=== PATIENT | male | born 1975 ===

== ENCOUNTER 2020-01-07 20:11 | Inpatient (IN) | payer SELFPAY ==
[2020-01-07 20:12] VITALS: BP 153/76; PULSE 96; RESP 16; TEMP 37.5; O2SAT 98; BMI 26.3
--- NOTE | 2020-01-07 20:29 | ED_ITS ---
HPI - Wound/Laceration General: Chief Complaint: Wound/Laceration Stated Complaint: WOUND Time Seen by Provider: 01/07/20 20:17 Source: patient and EMS Mode of arrival: EMS Limitations: no limitations History of Present Illness: HPI narrative: 44-year-old male states he has had redness and warmth to his arm for couple days. Patient was seen at [facility] and transferred here for direct admission. Patient has been febrile. He does have pain he rates a 6 out of 10. Patient given IV vancomycin at other facility. He has no cough. Associated symptoms: Reports fever(s); Denies chills, nausea or vomiting Review of Systems Const: Reports: fever(s); Denies: chills, body aches or change in appetite Eyes: Denies: blurry vision or eye discomfort ENMT: Denies: throat pain or dental pain Card: Denies: chest pain Resp: Denies: dyspnea GI: Denies: abdominal pain, nausea, vomiting or diarrhea : Denies: dysuria Musc: Denies: neck pain or back pain Skin/Breast: Reports: erythema and skin swelling Neuro: Denies: headache(s) Psych: Denies: depression Jose/Lymph: Denies: easy bruising All/Imm: Denies: urticaria Physical Exam Const: COMMON NORMALS: no acute distress, patient oriented x3 and healthy a ppearing HENMT: COMMON NORMALS: normocephalic and atraumatic HEAD & SCALP: normocephalic and atraumatic Eye: COMMON NORMALS: Equal, round and reactive pupils present and EOMs intact bilaterally PUPIL: Yes Equal, round and reactive pupils present Neck/C-Spine: COMMON NORMALS: full ROM and supple Chest: COMMONS NORMALS: normal inspection of the chest and normal palpation of entire chest wall Resp: COMMON NORMALS: normal respiratory effort, No retractions, No use of accessory muscles and clear to auscultation bilaterally AUSCULTATION: clear to auscultation bilaterally Cardio: COMMON NORMALS: regular rate, regular rhythm and No murmurs present (Cardio) RATE: regular rate RHYTHM: regular rhythm GI: COMMON NORMALS: Normal to inspection, nondistended, normoactive bowel sounds present, Soft to palpation, non-tender and no masses PALPATION: Yes Soft to palpation Extremity: COMMON NORMALS: full ROM NARRATIVE EXTREMITY EXAM: Swelling and erythema to right arm with tenderness to touch Neuro: COMMON NORMALS: patient oriented x3, moves all extremities and no focal motor deficits Psych: COMMON NORMALS: mental status grossly normal, Normal thought process present and cooperative THOUGHT PROCESS: Normal thought process present Skin: COMMON NORMALS: no rashes or lesions noted and no wounds GENERAL SKIN EXAM: no rashes or lesions noted Course Vital Signs: Vital signs: Vital Signs Temperature 99.5 F 01/07/20 20:12 Pulse Rate 96 01/07/20 20:12 Respiratory Rate 16 01/07/20 20:12 Blood Pressure 153/76 01/07/20 20:12 Pulse Oximetry 98 01/07/20 20:12 MDM - Wound/Laceration MDM Narrative: Medical decision making narrative: Matt presents here with cellulitis to his right arm. Patient is a direct admit and has no COVID symptoms. Patient given vancomycin another facility and will admit. Hospitalist Dr. Galvan is down seen patient currently. 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
--- NOTE | 2020-01-07 20:50 | PM.HP ---
Providers/Chief Complaint Chief Complaint: WOUND History of Present Illness Zachariah Quiros is a 44 year old male transferred from [facility] for concerns of right elbow swelling. He reports the right elbow started giving him pain and swelling 1 week ago. He does not believe he had any specific injury. He reports he started noticing some bumps going up his arm and saw a healthcare provider 2 days ago. At that point 1 of them was lanced, and he was placed on Bactrim. He took his first dose yesterday. Today he had some vomiting, chills, and elevated temperature. He then went to the emergency department, and it was thought he would need transfer for IV antibiotics, and orthopedic evaluation. He denies any history of COVID, exposure to COVID. He denies any current active drug use. He received an injection of Rocephin, and vancomycin prior to his transfer. He also received some fentanyl for pain. Denies picking of any ticks on the right arm, cat scratch, pet rabbits or dressing out any rabbits. Review of Systems General: Reports: 10 or more systems reviewed and unremarkable except in HPI and below Const: Reports: fever(s), chills, body aches and malaise Eyes: Denies: change in vision ENMT: Denies: throat pain Card: Denies: chest pain Resp: Denies: dyspnea GI: Reports: heartburn; Denies: abdominal pain : Denies: flank pain Musc: Reports: extremity pain and extremity swelling; Denies: neck pain Skin/Breast: Denies: rash Neuro: Denies: headache(s) Psych: Denies: anxiety Jose/Lymph: Denies: easy bruising All/Imm: Denies: urticaria Medications/Allergies Home Medications Medication Instructions Recorded Confirmed Last Taken Type naproxen 375 mg PO BID PRN 01/07/20 01/07/20 01/07/20 History sulfamethoxazole-trimethoprim See Rx Instructions .ROUTE .COMPLEX 01/07/20 01/07/20 01/07/20 History Allergies Allergy/AdvReac Type Severity Reaction Status Date / Time No Known Allergies Allergy Verified 01/07/20 20:58 PFSH Acute PFSH: Medical History (Updated 01/07/20 @ 20:57 by Aditya Galvan MD) GERD (gastroesophageal reflux disease) Tobacco dependency Surgical History (Updated 01/07/20 @ 20:54 by Aditya Galvan MD) History of knee surgery Family History (Updated 01/07/20 @ 20:54 by Aditya Galvan MD) Other Diabetes Social History (Updated 01/07/20 @ 20:54 by Aditya Galvan MD) Smoking and tobacco status: current every day smoker cigarettes Alcohol intake: current Alcohol intake frequency: 0-2 Drinks per Day Substance/Drug Use: former Vitals/I&O/Wt Last Vital Signs Temp 99.5 F 01/07/20 20:12 Pulse 96 01/07/20 20:12 Resp 16 01/07/20 20:12 BP 153/76 01/07/20 20:12 Pulse Ox 98 01/07/20 20:12 Weight last 48 hrs Weight 92.986 kg Physical Exam Narrative: EXAM NARRATIVE: General exam is a sleepy, white male in no apparent distress HEENT: Pupils equally round. Oropharynx clear. Neck is supple no lymphadenopathy or thyromegaly Cardiovascular regular in rhythm without murmur, no S3 or S4 Lungs clear no wheezing or crackles Abdomen is soft nontender with positive bowel sounds. No obvious organomegaly was deferred Extremities no cyanosis or clubbing. Right upper extremity with significant swelling. Some fluctuance over the right olecranon bursa. Enlarged lymph nodes, with some drainage in her right arm as well as axilla. Fair range of motion of the right elbow and I doubt he has a septic joint. Erythema over the skin consistent with cellulitis as well. Skin findings see above Neuro no focal deficits Data Other data: Venous duplex at [facility] right upper extremity negative for DVT. White blood cell count 23, hemoglobin 14.1, platelets 261,000 Sodium 131, potassium 3.8, chloride 96, bicarb 24, BUN 6, creatinine 0.7, glucose 108. Liver function test not done. A&P Assessment and plan (1) Septic olecranon bursitis of right elbow: Initiate vancomycin and Zosyn Orthopedic consultation Hydration Note that venous duplex is negative Check x-ray right elbow as well as chest considering enlarged lymph nodes, to axilla Cultures to be obtained by orthopedics Repeat blood culture here. One was done at [facility] Check liver function tests Rapid COVID test. Surgery expected tomorrow. Status: Acute (2) Cellulitis: Antibiotics as noted above Status: Acute Qualifiers: Laterality: right Site of cellulitis: extremity Site of cellulitis of extremity: upper extremity Qualified Code(s): L03.113 - Cellulitis of right upper limb (3) Tobacco dependency: Encourage abstinence Status: Acute (4) Leukocytosis: Secondary to infection. 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
[2020-01-07 20:51] VITALS: BP 153/76; PULSE 94; RESP 16; O2SAT 98
--- NOTE | 2020-01-07 20:56 | XRR_ITS ---
PROCEDURE INFORMATION: Exam: XR Chest, 1 View Exam date and time: 01/07/2020 9:10 PM Age: 44 years old Clinical indication: Other: Boil RT armpit; Patient HX: C/O boil right armpit x 1 week; Additional info: Fever TECHNIQUE: Imaging protocol: XR of the chest Views: 1 view. COMPARISON: No relevant prior studies available. FINDINGS: Lungs: Interstitial prominence without acute airspace disease. Pleural space: No pleural effusion. Heart/Mediastinum: No cardiomegaly. Bones/joints: Mild degenerative change. XR/XR chest 1V portable [id number] IMPRESSION: Interstitial prominence without acute airspace disease.
[2020-01-07 21:04] VITALS: BP 141/77; PULSE 92; RESP 18; TEMP 36.7; O2SAT 96
--- NOTE | 2020-01-07 21:04 | XRR_ITS ---
PROCEDURE INFORMATION: Exam: XR Right Elbow Exam date and time: 01/07/2020 10:08 PM Age: 44 years old Clinical indication: Swelling; Right; Patient HX: C/O redness and warmth and pain to R elbow for couple of days. ; Additional info: Pain , swelling TECHNIQUE: Imaging protocol: XR Right elbow. Views: 1 or 2 views. COMPARISON: No relevant prior studies available. FINDINGS: Bones/joints: Calcification of the triceps tendon attachment site. No acute osseous pathology. Anatomic alignment. Soft tissues: Soft tissue swelling, which could represent cellulitis in the appropriate clinical setting. XR/XR elbow RT 2V [id number] IMPRESSION: Soft tissue swelling, which could represent cellulitis in the appropriate clinical setting.
[2020-01-07 21:59] LABS: SARS Covid-2 Antigen Negative (Negative)
[2020-01-07 22:02] LABS: Alanine Aminotransferase 13 U/L (0-41); Albumin Level 3.2 g/dL (3.5-5.2); Alkaline Phosphatase 106 IU/L (40-130); Aspartate Amino Transferase 11 U/L (0-40); Globulin 3.6 g/dL (1.3-4.6); Total Bilirubin 0.4 mg/dL (0.15-1.2); Total Protein 6.8 g/dL (6.6-8.7)
[2020-01-07 22:04] VITALS: BP 141/83; PULSE 99; RESP 16; O2SAT 95
[2020-01-07 22:31] VITALS: PULSE 95; O2SAT 96
[2020-01-07] MEDS: sodium chloride 0.9% 1,000 ML 100 ML IV (22:55)
[2020-01-07] MEDS: piperacillin-tazobactam 3.375 GM in sodium chloride 0.9% (plus) 50 ML IV (22:55)
[2020-01-08] VITALS (15 sets, daily range): BP systolic 126–188; BP diastolic 71–102; PULSE 67–101; RESP 14–20; TEMP 36.6–37.6; O2SAT 94–100
[2020-01-08 05:38] LABS: Basophils % 0.2 %; Eosinophils # 0.1 10^3/uL (0.0-0.8); Eosinophils % 0.4 %; Hematocrit 37.6 % (42.0-52.0); Hemoglobin 12.6 g/dL (11.7-16.6); Lymphocytes # 1.3 10^3/uL (0.8-4.8); Lymphocytes % 6.8 %; Mean Corpuscular HGB Conc 33.5 g/dL (30.0-36.0); Mean Corpuscular Volume 86.6 fL (80-94); Monocytes # 1.1 10^3/uL (0.2-0.9); Monocytes % 5.7 %; Neutrophils # 16.24 10^3/uL (1.8-7.7); Neutrophils % 86.5 %; Nucleated Red Blood Cells % 0 %; Platelet Count 303 10^3/cmm (130-400); Red Blood Count 4.34 10^6/uL (4.1-5.3); Red Cell Distribution Width 13.8 % (12.1-15.1); White Blood Count 18.8 10^3/uL (4.0-10.0)
[2020-01-08 06:10] LABS: Alanine Aminotransferase 13 U/L (0-41); Albumin Level 3.2 g/dL (3.5-5.2); Alkaline Phosphatase 98 IU/L (40-130); Anion Gap 17.8 (5-19); Aspartate Amino Transferase 11 U/L (0-40); Blood Urea Nitrogen 8 mg/dL (6-20); Calcium 7.9 mg/dL (8.5-10.5); Carbon Dioxide 22 mmol/L (22-29); Chloride 100 mmol/L (98-107); Globulin 3.5 g/dL (1.3-4.6); Glomerular Filtration Rate 104.5 mL/min (90-130); Glucose 107 mg/dL (65-115); Osmolality Calculated 278 mOsm/kg (285-295); Potassium 3.8 mmol/L (3.5-5.1); Sodium 136 mmol/L (136-145); Total Bilirubin 0.5 mg/dL (0.15-1.2); Total Protein 6.7 g/dL (6.6-8.7)
[2020-01-08] MEDS: piperacillin-tazobactam 3.375 GM in sodium chloride 0.9% (plus) 50 ML IV ×2 (07:01→16:14)
--- NOTE | 2020-01-08 08:01 | PM.CONSULT ---
Providers/Reason For Consult Consulting Physican/Specialty*: Diogenes Garcia MD; orthopedic surgery Reason for Consult*: Infection right arm Attending Physician: Surekha Mendoza MD History of Present Illness History of Present Illness Zachariah Quiros is a 44 year old male who described pain and swelling beginning over his right elbow Monday about 1 week ago. He stated that began slowly progressing as well he noted area of erythema swelling in his armpit. He was seen Monday, 3 days ago, and [facility]. He describes the abscess in his axilla being lanced and beginning antibiotics on Monday, 2 days ago. He was seen in the emergency room last night with apparent progression of the erythema and the swelling. He was treated with Rocephin and vancomycin and is been admitted here to medicine. He is not aware of any trauma to the elbow. He describes no insect bites or penetrating wounds. He has no previous history of staphylococcal or other infections. Review of Systems Const: Reports: fever(s), body aches and malaise Meds/Allergies Home Medications and Allergies Home Medications Medication Instructions Recorded Confirmed Last Taken Type naproxen 375 mg PO BID PRN 01/07/20 01/07/20 01/07/20 History sulfamethoxazole-trimethoprim See Rx Instructions .ROUTE .COMPLEX 01/07/20 01/07/20 01/07/20 History Allergies Allergy/AdvReac Type Severity Reaction Status Date / Time No Known Allergies Allergy Verified 01/07/20 20:58 Current Medications Current Medications Generic Name Dose Route Start Last Admin Trade Name Freq PRN Reason Stop Dose Admin Sodium Chloride 1,000 mls @ 100 mls/hr 01/07/20 21:04 01/07/20 22:55 Sodium Chloride 0.9% IV 100 mls/hr .Q10H RORO Administration Piperacillin Sod/Tazobactam 50 mls @ 12.5 mls/hr 01/07/20 22:30 01/08/20 07:01 Sod 3.375 gm/ Sodium Chloride IV 12.5 mls/hr Q8H RORO Administration Protocol As Directed PFSH Acute PFSH: Medical History (Updated 01/07/20 @ 20:57 by Aditya Galvan MD) GERD (gastroesophageal reflux disease) Tobacco dependency Surgical History (Updated 01/07/20 @ 20:54 by Aditya Galvan MD) History of knee surgery Family History (Updated 01/07/20 @ 20:54 by Aditya Galvan MD) Other Diabetes Social History (Updated 01/07/20 @ 20:54 by Aditya Galvan MD) Smoking and tobacco status: current every day smoker cigarettes Alcohol intake: current Alcohol intake frequency: 0-2 Drinks per Day Substance/Drug Use: former Vitals/I&O/Wt Last Vital Signs Temp 98.5 F 01/08/20 04:00 Pulse 101 H 01/08/20 04:00 Resp 18 01/08/20 04:00 BP 127/85 01/08/20 04:00 Pulse Ox 97 01/08/20 04:00 01/07/20 01/08/20 01/08/20 22:59 06:59 14:59 Intake Total 550 / 550 Output Total 400 / 400 Balance 150 / 150 Weight last 48 hrs Weight 205 lb Physical Exam Narrative: EXAM NARRATIVE: On examination the patient's right arm he has a clear area of a tight swollen fluctuant over his olecranon bursa with marked erythema. The erythema extends up to the proximal third of the arm posteriorly and distal third of the arm dorsally with induration, swelling, and tenderness in those areas. He lacks approximately 30 degrees of extension of the elbow and flex to 100 degrees before he is limited by pain. He flexes and extends his ulnar 4 digits and extends and opposes his thumb. His sensation is intact light touch. He has a strong pulse. Data Micro: Micro: Microbiology 01/07/20 21:15 Blood Culture - Pr eliminary Blood SPECIMEN [facility] 01/07/20 21:19 Blood Culture - Pr eliminary Blood SPECIMEN [facility] Imaging^: Xray Ortho: Radiologist's impression: I reviewed radiographs of the right elbow from [facility]'s dated 01/07/2020. I can see no destructive processes of bone or other abnormalities A&P Assessment and plan (1) Septic olecranon bursitis of right elbow: Patient certainly has septic olecranon bursitis. I have concerns about the satellite abscesses as far as his axilla and the induration extending into his posterior arm and a dorsal forearm. I certainly think he needs excision of the olecranon bursa. I told him there certainly could be distal extension of abscesses was might be best clarified with MRI imaging. We will attempt to get an MRI to define the extent of surgery. We will schedule him for irrigation debridement of the right elbow this evening. I made aware of the possible need for further debridements. I discussed risk of bleeding and unlikely neurovascular injury. He understands all these and agrees to proceed. 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
[2020-01-08] MEDS: sodium chloride 0.9% 1,000 ML 100 ML IV (09:19)
--- NOTE | 2020-01-08 10:42 | PM.PN ---
Subjective Subjective: Interval history: Chart reviewed, noted decreased leukocytosis, afebrile. Case discussed earlier this morning with Dr. Garcia. Plan for OR later this evening. Will order MRI for further evaluation due to concern for more extensive infection. On dual IV antibiotic coverage with vancomycin and Zosyn. NPO in anticipation of procedure. Screen for COVID-19, negative. Transferred from [facility] ER last night. Unable to tolerate MRI. Taken to the OR in the late afternoon. Seen upon return home procedure, groggy, right upper extremity in sling. Medications: Reviewed: Yes Medication Review Details: Active Medications Generic Name Dose Route Start Last Admin Trade Name Freq PRN Reason Stop Dose Admin Acetaminophen 650 mg 01/07/20 21:04 Tylenol PO Q6H PRN Mild/Mod Pain Or Temp >/= 101 Sodium Chloride 1,000 mls @ 100 m ls/hr 01/07/20 21:04 01/08/20 09:19 Sodium Chloride 0.9% IV 100 mls/hr .Q10H RORO Administration Vancomycin HCl 1,5 00 mg/ 250 mls @ 166.667 mls/hr 01/08/20 07:30 Sodium Chloride IV Q8H RORO Protocol Piperacillin Sod/T azobactam 50 mls @ 12.5 mls /hr 01/07/20 22:30 01/08/20 07:01 Sod 3.375 gm/ So dium Chloride IV 12.5 mls/hr Q8H RORO Administration Protocol As Directed Morphine Sulfate 2 mg 01/07/20 21:04 Morphine IVP Q4H PRN PAIN Ondansetron HCl 4 mg 01/07/20 21:04 Zofran IVP Q6H PRN vomiting, or N/V if npo No Known Allergies Allergy (Verified 01/07/20 20:58) Vitals/I&O/Wt Last Vital Signs Temp 99.5 F 01/08/20 08:00 Pulse 96 01/08/20 08:00 Resp 14 01/08/20 08:00 BP 150/84 01/08/20 08:00 Pulse Ox 96 01/08/20 08:00 01/07/20 01/08/20 01/08/20 22:59 06:59 14:59 Intake Total 550 / 550 1000 / 1000 Output Total 400 / 400 300 / 300 Balance 150 / 150 700 / 700 Weight last 48 hrs Weight 92.986 kg Physical Exam Const: COMMON NORMALS: no acute distress, patient oriented x3 and alert GENERAL APPEARANCE: cooperative and comfortable ORIENTATION/CONSCIOUSNESS: Yes awake OTHER: -somewhat groggy post-op HENMT: COMMON NORMALS: normocephalic, atraumatic, hearing grossly normal bilaterally and moist oral mucous membranes HEAD & SCALP: normocephalic and atraumatic Eye: COMMON NORMALS: Equal, round and reactive pupils present, EOMs intact bilaterally and conjunctivae normal CONJUNCTIVA: Yes conjunctivae normal PUPIL: Yes Equal, round and reactive pupils present Neck/C-Spine: COMMON NORMALS: full ROM GENERAL: Yes normal visual inspection and Yes trachea midline Resp: COMMON NORMALS: normal respiratory effort, No retractions, No use of accessory muscles and clear to auscultation bilaterally EFFORT & INSPECTION: Yes able to speak in complete sentences, Yes symmetric chest movement and No tachypneic AUSCULTATION: clear to auscultation bilaterally Cardio: COMMON NORMALS: regular rate, regular rhythm, S1 normal heart sound present, S2 normal heart sound present and No murmurs present (Cardio) RATE: regular rate RHYTHM: regular rhythm HEART SOUNDS: S1 normal heart sound present and S2 normal heart sound present GI: COMMON NORMALS: Normal to inspection, nondistended, normoactive bowel sounds present, Soft to palpation and non-tender PALPATION: Yes Soft to palpation Extremity: COMMON NORMALS: normal to inspection, no clubbing, cyanosis or edema and no pedal edema NARRATIVE EXTREMITY EXAM: -RUE in sling, bulky dressing. Gross sensation intact, edema of fingers and hand Neuro: COMMON NORMALS: patient oriented x3, moves all extremities, no focal motor deficits, no sensory deficits noted and gait normal SENSORIUM/ORIENTATION: Yes alert Psych: COMMON NORMALS: mental status grossly normal, Normal thought process present, cooperative, normal affect and speech normal SPEECH: Yes normal speech THOUGHT PROCESS: Normal thought process present Skin: COMMON NORMALS: no rashes or lesions noted, no jaundice, no petechiae and no mottling GENERAL SKIN EXAM: no rashes or lesions noted Data : 01/08/20 05:00 01/08/20 05:00 Micro: Microbiology 01/07/20 21:15 Blood Culture - Preliminary Blood SPECIMEN COLLECTED 01/07/20 21:19 Blood Culture - Preliminary Blood SPECIMEN COLLECTED A&P Assessment and plan (1) Septic olecranon bursitis of right elbow: -On broad-spectrum IV antibiotics with vancomycin and Zosyn -Noted leukocytosis with neutrophilic predominance, continue to trend WBC -Had venous duplex done at outside facility which was negative -Pending MRI for further evaluation; unable to tolerate this -Had drainage of axillary abscess done several days ago and 2 days of treatment with Bactrim -Orthopedics consult by Dr. Garcia appreciated; plan for OR later this afternoon -screened for COVID-19: negative -pain control as needed -RUE elevation -f/u cultures; initial set done at [facility] -on IVF hydration -has been NPO -neurovascular status checks Status: Acute (2) Cellulitis: -as noted above Status: Acute Qualifiers: Laterality: right Site of cellulitis: extremity Site of cellulitis of extremity: upper extremity Qualified Code(s): L03.113 - Cellulitis of right upper limb (3) Tobacco dependency: Status: Chronic (4) GERD (gastroesophageal reflux disease): Status: Chronic Qualifiers: Esophagitis presence: esophagitis presence not specified Qualified Code(s): K21.9 - Gastro-esophageal reflux disease without esophagitis Additional A&P Information -DVT ppx with SCDs for now pending surgery -Dispo: home -Code status: FULL code Attestations Medical Necessity Statement*: Patient requires hospitalization for continued treatment of right upper extremity cellulitis and septic olecranon bursitis, on IV antibiotics and pending surgical intervention. Time Spent in Patient Care: 16 - 35 minutes (>than 50% of time spent in counselling and/or direct pt care on unit). Coding Level of Care Code Acute [employer] Operator for g Fwd Exam Comprehensive Diagnoses Septic olecranon bursitis of right elbow M71.121 Cellulitis L03.113 Laterality: right Site of cellulitis: extremity Site of cellulitis of extremity: upper extremity Tobacco dependency F17.200 GERD (gastroesophageal reflux disease) K21.9 Esophagitis presence: esophagitis presence not specified
--- NOTE | 2020-01-08 13:57 | PC.NURSE ---
Patient to MRI at this time.
--- NOTE | 2020-01-08 14:08 | P.ANESASSM_ITS ---
Pre-Anesthetic Assessment Pre-Anesthetic Assessment: Height/Weight: Height 1.88 m Weight 92.986 kg Temp Pulse Resp BP Pulse Ox 99.6 F 95 18 162/84 97 01/08/20 12:00 01/08/20 12:00 01/08/20 12:00 01/08/20 12:00 01/08/20 12:00 Preop Diagnosis: septic right olecranon bursa Proposed Procedure: Operation Date: 01/08/20 13:25 Proposed Procedures p excision right olecranon bursa(Right) - Diogenes Garcia MD Social: Social History: Tobacco GI: GI: GERD Anesthetic Plan: ASA status: 1 Risk of > 500 ml blood loss (7ml/kg in children): No Meds/Allergies Current Medications: Current Medications Generic Name Dose Route Start Last Admin Trade Name Freq PRN Reason Stop Dose Admin Sodium Chloride 1,000 mls @ 100 m ls/hr 01/07/20 21:04 01/08/20 09:19 Sodium Chloride 0.9% IV 100 mls/hr .Q10H RORO Administration Vancomycin HCl 1,5 00 mg/ 250 mls @ 166.667 mls/hr 01/08/20 07:30 01/08/20 11:40 Sodium Chloride IV 166.7 mls/hr Q8H RORO Administration Protocol Piperacillin Sod/T azobactam 50 mls @ 12.5 mls /hr 01/07/20 22:30 01/08/20 07:01 Sod 3.375 gm/ So dium Chloride IV 12.5 mls/hr Q8H RORO Administration Protocol As Directed Additional Medication Information: Active Medications Generic Name Dose Route Start Last Admin Trade Name Freq PRN Reason Stop Dose Admin Acetaminophen 650 mg 01/07/20 21:04 Tylenol PO Q6H PRN Mild/Mod Pain Or Temp >/= 101 Sodium Chloride 1,000 mls @ 100 m ls/hr 01/07/20 21:04 01/08/20 09:19 Sodium Chloride 0.9% IV 100 mls/hr .Q10H RORO Administration Vancomycin HCl 1,5 00 mg/ 250 mls @ 166.667 mls/hr 01/08/20 07:30 Sodium Chloride IV Q8H RROO Protocol Piperacillin Sod/T azobactam 50 mls @ 12.5 mls /hr 01/07/20 22:30 01/08/20 07:01 Sod 3.375 gm/ So dium Chloride IV 12.5 mls/hr Q8H RORO Administration Protocol As Directed Morphine Sulfate 2 mg 01/07/20 21:04 Morphine IVP Q4H PRN PAIN Ondansetron HCl 4 mg 01/07/20 21:04 Zofran IVP Q6H PRN vomiting, or N/V if npo No Known Allergies Allergy (Verified 01/07/20 20:58) PFSH Anesthesia PFSH: Medical History (Updated 01/08/20 @ 12:06 by Surekha Mendoza MD) GERD (gastroesophageal reflux disease) Tobacco dependency Surgical History (Updated 01/07/20 @ 20:54 by Aditya Galvan MD) History of knee surgery Family History (Updated 01/07/20 @ 20:54 by Aditya Galvan MD) Other Diabetes Social History (Updated 01/07/20 @ 20:54 by Aditya Galvan MD) Smoking and tobacco status: current every day smoker cigarettes Alcohol intake: current Alcohol intake frequency: 0-2 Drinks per Day Substance/Drug Use: former Data Anesthesia CBC & Chem 7: 01/08/20 05:00 01/08/20 05:00 Other Labs: Laboratory Results - last 48 hr 01/07/20 01/07/20 01/08/20 21:09 21:19 05:00 WBC 18.8 H RBC 4.34 Hgb 12.6 Hct 37.6 L MCV 86.6 MCH 29.0 MCHC 33.5 RDW 13.8 Plt Count 303 MPV 10.0 Neut % (Auto) 86.5 Lymph % (Auto) 6.8 [place] % (Auto) 5.7 Eos % (Auto) 0.4 Baso % (Auto) 0.2 Neut # (Auto) 16.24 H Lymph # (Auto) 1.3 [place] # (Auto) 1.1 H Eos # (Auto) 0.1 Baso # (Auto) 0.0 Nucleated RBC % (auto) 0 Nucleated RBCs # 0.0 Sodium Potassium Chloride Carbon Dioxide Anion Gap BUN Creatinine GFR Calculation Glucose Calculated Osmolality Calcium Total Bilirubin 0.4 Direct Bilirubin 0.20 AST 11 ALT 13 Alkaline Phosphatase 106 Total Protein 6.8 Albumin 3.2 L Globulin 3.6 SARS-CoV-2 Ag (Rapid) Negative 01/08/20 05:00 WBC RBC Hgb Hct MCV MCH MCHC RDW Plt Count MPV Neut % (Auto) Lymph % (Auto) [place] % (Auto) Eos % (Auto) Baso % (Auto) Neut # (Auto) Lymph # (Auto) [place] # (Auto) Eos # (Auto) Baso # (Auto) Nucleated RBC % (auto) Nucleated RBCs # Sodium 136 Potassium 3.8 Chloride 100 Carbon Dioxide 22 Anion Gap 17.8 BUN 8 Creatinine 0.8 GFR Calculation 104.5 Glucose 107 Calculated Osmolality 278 L Calcium 7.9 L Total Bilirubin 0.5 Direct Bilirubin AST 11 ALT 13 Alkaline Phosphatase 98 Total Protein 6.7 Albumin 3.2 L Globulin 3.5 SARS-CoV-2 Ag (Rapid) Micro: Microbiology 01/07/20 21:15 Blood Culture - Preliminary Blood SPECIMEN COLLECTED 01/07/20 21:19 Blood Culture - Preliminary Blood SPECIMEN COLLECTED Cardiac Studies: No Data to Display
--- NOTE | 2020-01-08 15:52 | PC.NURSE ---
Patient returned from MRI to out patient surgery at this time.
--- NOTE | 2020-01-08 17:27 | PM.OP ---
Operative Report Date of procedure: January 08, 2020 Pre-op Diagnosis: septic right olecranon bursa Post-op diagnosis: other Post-op Diagnosis: Septic right olecranon bursitis with abscess extension into right forearm, subcutaneous abscesses x2 right axilla Post-op Findings: The patient had purulent olecranon bursa measuring approximately 4 x 4 cm. There is extension of purulent material to the distal half of the forearm. Nonpurulent cellulitis was seen to the wrist and to the proximal third of the arm. 2 necrotic abscesses approximately 2 cm in diameter were identified in the axilla Procedure Done: Excision septic right olecranon bursa with debridement abscess extension into forearm, debridement subcutaneous abscesses right axilla x2 Pathology: none sent Surgeon: Diogenes Garcia Anesthesia: General Estimated blood loss (mL): 20 Tourniquet time (min): 12 Complications: None Findings: Patient had a purulent septic bursa over the right olecranon approximately 4 x 4 cm diameter. There is extension of purulent material along the fascial lines to the proximal half of the forearm. Cellulitis was present to the wrist and approximately to the axilla. 2 separate subcutaneous abscesses were identified in the axilla both measuring approximately 2 cm in diameter Condition: stable Disposition: PACU Brief History: Mr. Loredo is a 44-year-old male with an apparent septic bursitis that it steadily progressed despite antibiotics since Monday. He was transferred to our facility from [facility]. Attempted MRI imaging of the arms and find the extent the fact infection was not tolerated by the patient. He was counseled regarding the need for excision of the septic olecranon bursa and the need for surgical exploration arm as findings dictated. Procedure: The patient was taken to the operating room and given a general anesthesia. He was prepped and draped in the lateral position with his right arm flexed over the body. Initially a longitudinal incision was made over the septic olecranon bursa. Upon penetrating the skin purulent fluid was identified. Routine and anaerobic cultures were taken. Utilizing a scalpel blade and scissors the septic bursal sac was removed and the remaining margins were removed with a rondure. Altogether this involved mix approximately 4 x 4 centimeter area of bursa. Purulence what could be expressed distally into the forearm. The excision was then extended distally approximately 5 cm pearly tissue was debrided with suction and surrounding compromised tissue removed with a run your. Dissection was completed at the point where purulent tissue was no longer identified and more edematous tissue consistent with cellulitis was noted. Dissection was then accomplished proximally approximately 4 cm into the area of induration posteriorly over the arm. Fascial planes were elevated posteriorly with the digit but no purulent tissue was identified. The wound was then irrigated with sterile saline under bulb syringe. It was loosely closed with 1 Prolene suture. Attention was then focused on the 2 axillary abscesses. Each abscess was opened up with a scalpel blade and hemostat draining purulent and removing compromised surrounding tissue with the hemostat. Sterile 4 x 4's Kerlix compressive web roll were placed over the arm. The 2 subcutaneous abscesses drained in the axilla were packed with gauze and covered with 4 x 4's and ABD pad. An Austyn wrap was applied from the axilla to hand and the dressing the axilla reinforced with tape. The patient was extubated and taken in a sling to recovery room in stable condition. The
[2020-01-08] MEDS: morphine 4 mg/mL SDV 1 mL IVP (17:37)
--- NOTE | 2020-01-08 17:43 | PC.NURSE ---
1736- ORAL AIRWAY OUT, SIMPLE MASK AT 6LPM, SAT 99%
[2020-01-08 18:20] LABS: Glucose Point of Care 121 mg/dL (70-110)
[2020-01-09] VITALS (9 sets, daily range): BP systolic 120–153; BP diastolic 75–92; PULSE 64–93; RESP 15–22; TEMP 36.5–36.8; O2SAT 95–99
[2020-01-09] MEDS: sodium chloride 0.9% 1,000 ML 100 ML IV (01:24)
[2020-01-09] MEDS: piperacillin-tazobactam 3.375 GM in sodium chloride 0.9% (plus) 50 ML IV ×3 (01:24→15:08)
[2020-01-09 05:42] LABS: Basophils % 0.1 %; Hematocrit 36.9 % (42.0-52.0); Hemoglobin 12.1 g/dL (11.7-16.6); Lymphocytes # 0.6 10^3/uL (0.8-4.8); Lymphocytes % 3.3 %; Mean Corpuscular HGB Conc 32.8 g/dL (30.0-36.0); Mean Corpuscular Hemoglobin 29.2 pg (28.0-34.0); Mean Corpuscular Volume 88.9 fL (80-94); Mean Platelet Volume 9.3 fL (7.4-10.4); Monocytes # 0.7 10^3/uL (0.2-0.9); Neutrophils # 15.75 10^3/uL (1.8-7.7); Nucleated Red Blood Cells % 0 %; Platelet Count 320 10^3/cmm (130-400); Red Blood Count 4.15 10^6/uL (4.1-5.3); Red Cell Distribution Width 14.1 % (12.1-15.1); White Blood Count 17.1 10^3/uL (4.0-10.0)
[2020-01-09 06:05] LABS: Blood Urea Nitrogen 12 mg/dL (6-20); Calcium 8.3 mg/dL (8.5-10.5); Carbon Dioxide 26 mmol/L (22-29); Chloride 104 mmol/L (98-107); Creatinine Clr Calc Pharmacy 126.8344; Glomerular Filtration Rate 91.3 mL/min (90-130); Glucose 183 mg/dL (65-115); Osmolality Calculated 287 mOsm/kg (285-295); Sodium 138 mmol/L (136-145)
--- NOTE | 2020-01-09 08:23 | ANE.PACU2 ---
Inpatient post-anesthesia follow up: Airway intact: Yes Vital signs: Temperature 98.3 F Pulse Rate [Monito r] 96 Pulse Rate 86 Respiratory Rate 18 Blood Pressure [Le ft Arm] 153/76 Blood Pressure 141/79 Pulse Oximetry 98 Oxygen Delivery Me thod [ Room Air Current Rate & Del felice] Oxygen Delivery Me thod Room Air Oxygen Flow Rate 2 Fraction of Inspir ed Oxygen Hydration adequate: Yes Nausea and vomiting: No Pain level: 1 Mental status: Baseline
--- NOTE | 2020-01-09 11:48 | PC.CHAP ---
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 visit [] Patient/Family/Request visit [] Outpatient visit [] Follow-up visit [] Physician referral [] Code/Alert [x] Routine visit [] Staff referral [] Actively dying [] Patient sleeping [] Family support [] [] Out of room [] Palliative care [] [x] Receiving care in room [] Pre-surgical visit [] Trauma [] Long length of stay [] ICU visit [] Other: Relational/Emotional Strength [x] Patient feels connected with others/family/visitors/staff [] Distress [] Loneliness/isolation [] Abandonment Spirituality of Patient [] Person of Sonali [] Attends Amish of their Sonali [] Believes in Prayer [] Reads Bible or Confucianism materials [] There are Spiritual issues to be addressed Optical Mechanic Interventions [] Prayer [] Active listening [] Non-anxious presence [] Spiritual/emotional support [] Crisis/trauma care [] Spiritual counseling [] Bereavement support [] Provided bereavement packet [] Provided Bible/devotional materials [] Provided toy/stuffed animal, coloring book to patient or family member [] Provided Communion [] Anointing/[place] [] Salvation [] Completed spiritual assessment [] Other: Impact on Illness or Injury [] Angry [] Fearful [] Anxious [] Often cries [] Exhaustion [] Unable to work [] Unable to attend orthodoxy [] Unable to walk/stand [] Unable to read [] Unable to drive [] Unable to eat/drink [] Unable to sleep [] Unable to be with family [] Patient intubated [] Other: Summary Has an infection in right arm long rose, talked about family, hopes to get to home tomorrow Time spent with patient 10 mins
--- NOTE | 2020-01-09 12:44 | P.PN_ITS ---
Subjective Subjective: Interval history: Good urine output overnight, 3600 mL, hemodynamically stable, afebrile, on RA. Some improvement in leukocytosis with WBC-17.1. Remains on dual IV antibiotics. POD # 1 s/p excision of septic R olecranon bursa with debridement. No pain meds required overnight. Plan for dressing change per Ortho tomorrow. Much more alert today, good appetite. Medications: Reviewed: Yes Medication Review Details: Active Medications Generic Name Dose Route Start Last Admin Trade Name Freq PRN Reason Stop Dose Admin Acetaminophen 650 mg 01/07/20 21:04 Tylenol PO Q6H PRN Mild/Mod Pain Or Temp >/= 101 Sodium Chloride 1,000 mls @ 75 ml s/hr 01/07/20 21:04 01/09/20 01:24 Sodium Chloride 0.9% IV 100 mls/hr .[id number] RORO Administration Piperacillin Sod/T azobactam 50 mls @ 12.5 mls /hr 01/07/20 22:30 01/09/20 08:16 Sod 3.375 gm/ So dium Chloride IV 12.5 mls/hr Q8H RORO Administration Protocol As Directed Vancomycin HCl 1,5 00 mg/ 250 mls @ 166.667 mls/hr 01/09/20 05:30 01/09/20 05:47 Sodium Chloride IV 166.7 mls/hr Q8H RORO Administration Protocol Morphine Sulfate 2 mg 01/07/20 21:04 Morphine IVP Q4H PRN PAIN Morphine Sulfate 2 mg 01/08/20 18:00 Morphine IVP Q1H PRN PAIN not managed by oral agent Oxycodone HCl 5 - 10 mg 01/08/20 18:00 Oxycodone Ir PO Q4H PRN MODERATE TO SEVER E PAIN No Known Allergies Allergy (Verified 01/07/20 20:58) Vitals/I&O/Wt Last Vital Signs Temp 97.8 F 01/09/20 11:35 Pulse 64 01/09/20 11:35 Resp 20 H 01/09/20 11:35 BP 150/90 01/09/20 11:35 Pulse Ox 99 01/09/20 11:35 01/08/20 01/09/20 01/09/20 22:59 06:59 14:59 Intake Total 50 / 5920.965 2808.333 / 4080.000 650 / 650 Output Total 20 / 320 3600 / 3920 1300 / 1300 Balance 30 / 1481.667 -1321.667 / 160.000 -650 / -650 Weight last 48 hrs Weight 92.986 kg Physical Exam Const: COMMON NORMALS: no acute distress, patient oriented x3 and alert GENERAL APPEARANCE: cooperative and comfortable ORIENTATION/CONSCIOUSNESS: Yes awake HENMT: COMMON NORMALS: normocephalic, atraumatic, hearing grossly normal bilaterally and moist oral mucous membranes HEAD & SCALP: normocephalic and atraumatic Eye: COMMON NORMALS: Equal, round and reactive pupils present, EOMs intact bilaterally and conjunctivae normal CONJUNCTIVA: Yes conjunctivae normal PUPIL: Yes Equal, round and reactive pupils present Neck/C-Spine: COMMON NORMALS: full ROM GENERAL: Yes normal visual inspection and Yes trachea midline Resp: COMMON NORMALS: normal respiratory effort, No retractions, No use of accessory muscles and clear to auscultation bilaterally EFFORT & INSPECTION: Yes able to speak in complete sentences, Yes symmetric chest movement and No tachypneic AUSCULTATION: clear to auscultation bilaterally Cardio: COMMON NORMALS: regular rate, regular rhythm, S1 normal heart sound present, S2 normal heart sound present and No murmurs present (Cardio) RATE: regular rate RHYTHM: regular rhythm HEART SOUNDS: S1 normal heart sound present and S2 normal heart sound present GI: COMMON NORMALS: Normal to inspection, nondistended, normoactive bowel sounds present, Soft to palpation and non-tender PALPATION: Yes Soft to palpation Extremity: COMMON NORMALS: normal to inspection, no clubbing, cyanosis or edema and no pedal edema NARRATIVE EXTREMITY EXAM: -RUE in sling, bulky dressing. Gross sensation intact, edema of fingers and hand Neuro: COMMON NORMALS: patient oriented x3, moves all extremities, no focal motor deficits, no sensory deficits noted and gait normal SENSORIUM/ORIENTATION: Yes alert Psych: COMMON NORMALS: mental status grossly normal, Normal thought process present, cooperative, normal affect and speech normal SPEECH: Yes normal speech THOUGHT PROCESS: Normal thought process present Skin: COMMON NORMALS: no rashes or lesions noted, no jaundice, no petechiae and no mottling GENERAL SKIN EXAM: no rashes or lesions noted Data : 01/09/20 05:10 01/09/20 05:10 Micro: Microbiology 01/07/20 21:15 Blood Culture - Preliminary Blood NEGATIVE TO DATE 01/07/20 21:19 Blood Culture - Preliminary Blood NEGATIVE TO DATE 01/08/20 16:45 Gram Stain - Final Arm - Right A&P Assessment and plan (1) Septic olecranon bursitis of right elbow: -On broad-spectrum IV antibiotics with vancomycin and Zosyn -Noted leukocytosis with neutrophilic predominance, some improvement today; continue to trend WBC -Had venous duplex done at outside facility which was negative -unable to tolerate MRI -Had drainage of axillary abscess done several days ago and 2 days of treatment with Bactrim prior to admission -Orthopedics consult by Dr. Garcia appreciated; s/p excision of septic right olecranon bursa with debridement of abscess extension into forearm and subcutaneous abscesses in the right axilla; POD # 1 -screened for COVID-19: negative -pain control as needed -RUE elevation -blood cx: prelim negative -wound culture pending, gram stain-moderate GPC -d/c IVF; encourage oral hydration -neurovascular status checks -sling for support; OT evaluation appreciated Status: Acute (2) Cellulitis: -as noted above Status: Acute Qualifiers: Laterality: right Site of cellulitis: extremity Site of cellulitis of extremity: upper extremity Qualified Code(s): L03.113 - Cellulitis of right upper limb (3) Tobacco dependency: Status: Chronic (4) GERD (gastroesophageal reflux disease): Status: Chronic Qualifiers: Esophagitis presence: esophagitis presence not specified Qualified Code(s): K21.9 - Gastro-esophageal reflux disease without esophagitis Additional A&P Information -hyperglycemia; likely infection-related, no hx of DM -DVT ppx with SCDs -Dispo: home -Code status: FULL code Attestations Medical Necessity Statement*: Patient requires hospitalization for continued IV antibiotic treatment for extensive RUE cellulitis and abscess s/p debridement, pending culture results. Time Spent in Patient Care: 16 - 35 minutes (>than 50% of time spent in counselling and/or direct pt care on unit) . Coding Level of Care Code Acute Head Shipper for [facility] Fwd Exam Comprehensive Diagnoses Septic olecranon bursitis of right elbow M71.121 Cellulitis L03.113 Laterality: right Site of cellulitis: extremity Site of cellulitis of extremity: upper extremity Tobacco dependency F17.200 GERD (gastroesophageal reflux disease) K21.9 Esophagitis presence: esophagitis presence not specified
--- NOTE | 2020-01-09 12:52 | P.PN_ITS ---
Subjective Subjective: Interval history: Pain much better. Good appetite Vitals/I&O/Wt Last Vital Signs Temp 97.8 F 01/09/20 11:35 Pulse 64 01/09/20 11:35 Resp 20 H 01/09/20 11:35 BP 150/90 01/09/20 11:35 Pulse Ox 99 01/09/20 11:35 01/08/20 01/09/20 01/09/20 22:59 06:59 14:59 Intake Total 50 / 1071.516 8760.333 / 4080.000 650 / 650 Output Total 20 / 320 3600 / 3920 1300 / 1300 Balance 30 / 1481.667 -1321.667 / 160.000 -650 / -650 Weight last 48 hrs Weight 205 lb Physical Exam Narrative: EXAM NARRATIVE: RUE dressing clean and dry. Moves fingers and wrists without deficits. Sensation intact to LT Data : 01/09/20 05:10 01/09/20 05:10 Micro: Microbiology 01/07/20 21:15 Blood Culture - Preliminary Blood NEGATIVE TO DATE 01/07/20 21:19 Blood Culture - Preliminary Blood NEGATIVE TO DATE 01/08/20 16:45 Gram Stain - Final Arm - Right A&P Assessment and plan (1) Olecranon bursa abscess: Will change dressings in am. Patient to stay in sling into wound stable. May move wrist and digits. Antibiotics per medicine. Status: Acute Attestations Medical Necessity Statement*: Needs continued IV antibiotics. 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
[2020-01-09 13:18] LABS: Vancomycin Trough 16.9 ug/mL (10-15)
[2020-01-09] MEDS: oxyCODONE 5 mg IR Tab/Cap PO (15:17)
[2020-01-10] VITALS (7 sets, daily range): BP systolic 132–163; BP diastolic 75–96; PULSE 69–76; RESP 16–22; TEMP 36.4–36.8; O2SAT 98–100
[2020-01-10] MEDS: piperacillin-tazobactam 3.375 GM in sodium chloride 0.9% (plus) 50 ML IV ×3 (00:45→15:30)
[2020-01-10] MEDS: oxyCODONE 5 mg IR Tab/Cap PO ×2 (01:51→08:15)
[2020-01-10 06:20] LABS: Basophils % 0.2 %; Eosinophils # 0.1 10^3/uL (0.0-0.8); Eosinophils % 1.1 %; Hematocrit 34.8 % (42.0-52.0); Hemoglobin 11.1 g/dL (11.7-16.6); Lymphocytes # 2.6 10^3/uL (0.8-4.8); Mean Corpuscular HGB Conc 31.9 g/dL (30.0-36.0); Mean Corpuscular Hemoglobin 28.6 pg (28.0-34.0); Mean Corpuscular Volume 89.7 fL (80-94); Mean Platelet Volume 9.5 fL (7.4-10.4); Monocytes # 0.6 10^3/uL (0.2-0.9); Monocytes % 4.7 %; Neutrophils # 9.48 10^3/uL (1.8-7.7); Neutrophils % 73.7 %; Nucleated Red Blood Cells % 0 %; Platelet Count 326 10^3/cmm (130-400); Red Blood Count 3.88 10^6/uL (4.1-5.3); Red Cell Distribution Width 14.6 % (12.1-15.1); White Blood Count 12.9 10^3/uL (4.0-10.0)
[2020-01-10] MEDS: acetaminophen 325 mg Tablet 650 MG PO (08:06)
--- NOTE | 2020-01-10 08:20 | PM.PN ---
Subjective Subjective: Interval history: Much less arm pain. Feeling better. Vitals/I&O/Wt Last Vital Signs Temp 97.8 F 01/10/20 08:00 Pulse 72 01/10/20 08:00 Resp 16 01/10/20 08:00 BP 142/93 01/10/20 08:00 Pulse Ox 99 01/10/20 08:00 01/09/20 01/10/20 01/10/20 22:59 06:59 14:59 Intake Total 780 / 1970 540 / 2510 Output Total 1700 / 3000 720 / 3720 Balance -920 / -1030 -180 / -1210 Physical Exam Narrative: EXAM NARRATIVE: Dressing removed right arm. Much less erythema and swelling in arm and forearm. Slight drainage of bloody fluid from olecranon portion of incision No drainage from axillary abscesses and packing is removed Range of motion right elbow 30 to 120 degrees. Full motion digits right hand Data : 01/10/20 05:10 01/09/20 05:10 A&P Assessment and plan (1) Septic olecranon bursitis of right elbow: Clinically much better. Okay for discharge per Ortho. Will follow up with me next Monday for wound check. 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
--- NOTE | 2020-01-10 15:28 | P.DS_ITS ---
Discharge Providers Date of Admission: 01/07/20 21:05 Date of Discharge: January 10, 2020 Attending Provider at Admission: Aditya Galvan MD Attending Provider at Discharge: Surekha Mendoza MD Consults: Alannah, Dr. Garcia Diagnoses at Discharge Discharge Diagnosis (1) Septic olecranon bursitis of right elbow: Status: Acute Problem details: -On broad-spectrum IV antibiotics with vancomycin and Zosyn -Noted leukocytosis with neutrophilic predominance, some improvement today; continue to trend WBC -Had venous duplex done at outside facility which was negative -unable to tolerate MRI -Had drainage of axillary abscess done several days ago and 2 days of treatment with Bactrim prior to admission -Orthopedics consult by Dr. Garcia appreciated; s/p excision of septic right olecranon bursa with debridement of abscess extension into forearm and subcutaneous abscesses in the right axilla; POD # 2 -screened for COVID-19: negative -pain control as needed -RUE elevation -blood cx: prelim negative -wound culture growing few Staph aureus so far, gram stain-moderate GPC -off IVF; encourage oral hydration -neurovascular status checks -sling for support; OT evaluation appreciated Reason for Visit Reason for Visit: WOUND Hospital Course Hospital Course: Patient was admitted as a transfer from [facility] where he had presented with complaints of right upper extremity pain, swelling, redness having had drainage of axillary abscesses several days earlier and been prescribed Bactrim for treatment of right upper extremity cellulitis. With worsening symptoms he had presented re-evaluation at the ER and due to worsening cellulitis and concern for olecranon bursitis patient was transferred to our facility for orthopedic evaluation. Attempts at additional imaging specifically MRI were unsuccessful as patient is unable to tolerate positioning for adequate imaging to be obtained. However due to concern for septic olecranon bursitis and extensive upper extremity cellulitis he had excision of septic right olecranon bursa with debridement of abscess extension into the forearm and subcutaneous abscesses in the right axilla done by Dr. Garcia, is postop day #2 today. He has consistently been on IV antibiotic treatment with good response as noted with symptomatic improvement as well as a decrease in leukocytosis, lack of fever. Blood cultures have been negative and wound cultures so far are growing few staph aureus. As patient has now had source control with debridement, will plan on continue treatment with Bactrim to complete the treatment course. Patient will follow-up with Dr. Garcia on 01/20 and will follow up with primary care provider within 1 week to ensure appropriate recovery. Patient is counseled on need to seek medical attention immediately should he have worsening symptoms including fever, increased pain, swelling, redness, drainage. He has been provided with a sling with range of motion as specified by orthopedics. Discharge Summary: -Patient to follow up with Dr. Garcia on 01/20 @ 1400 -Patient to follow up with primary care physician within 1 week Physical Exam Const: COMMON NORMALS: no acute distress, patient oriented x3 and alert GENERAL APPEARANCE: cooperative and comfortable ORIENTATION/CONSCIOUSNESS: Yes awake HENMT: COMMON NORMALS: normocephalic, atraumatic, hearing grossly normal bilaterally and moist oral mucous membranes HEAD & SCALP: normocephalic and atraumatic Eye: COMMON NORMALS: Equal, round and reactive pupils present, EOMs intact bilaterally and conjunctivae normal CONJUNCTIVA: Yes conjunctivae normal PUPIL: Yes Equal, round and reactive pupils present Neck/C-Spine: COMMON NORMALS: full ROM GENERAL: Yes normal visual inspection and Yes trachea midline Resp: COMMON NORMALS: normal respiratory effort, No retractions, No use of accessory muscles and clear to auscultation bilaterally EFFORT & INSPECTION: Yes able to speak in complete sentences, Yes symmetric chest movement and No tachypneic AUSCULTATION: clear to auscultation bilaterally Cardio: COMMON NORMALS: regular rate, regular rhythm, S1 normal heart sound present, S2 normal heart sound present and No murmurs present (Cardio) RATE: regular rate RHYTHM: regular rhythm HEART SOUNDS: S1 normal heart sound present and S2 normal heart sound present GI: COMMON NORMALS: Normal to inspection, nondistended, normoactive bowel sounds present, Soft to palpation and non-tender PALPATION: Yes Soft to palpation Extremity: COMMON NORMALS: normal to inspection, no clubbing, cyanosis or edema and no pedal edema NARRATIVE EXTREMITY EXAM: -RUE in sling, clean/dry/intact dressing in place. Gross sensation intact, edema of fingers and hand (improving) Neuro: COMMON NORMALS: patient oriented x3, moves all extremities, no focal motor deficits, no sensory deficits noted and gait normal SENSORIUM/ORIENTATION: Yes alert Psych: COMMON NORMALS: mental status grossly normal, Normal thought process present, cooperative, normal affect and speech normal SPEECH: Yes normal speech THOUGHT PROCESS: Normal thought process present Skin: COMMON NORMALS: no rashes or lesions noted, no jaundice, no petechiae and no mottling GENERAL SKIN EXAM: no rashes or lesions noted Discharge Data Data Completed and Pending: Completed Studies During Hospitalization Category Date Time Status XR chest 1V anupama ble [id number] Routine Exams 01/07/20 20:56 Completed XR elbow RT 2V 73 070 Urgent Exams 01/07/20 21:04 Completed Pending at discharge Category Date Time Status Abscess Culture a nd Gram Stain Rout ine Lab 01/08/20 16:45 Results Anaerobic Culture Routine Lab 01/08/20 16:45 Results Blood Culture Sta t Lab 01/07/20 21:15 Results Labs from last 24 hours 01/10/20 05:10 WBC 12.9 H RBC 3.88 L Hgb 11.1 L Hct 34.8 L MCV 89.7 MCH 28.6 MCHC 31.9 RDW 14.6 Plt Count 326 MPV 9.5 Neut % (Auto) 73.7 Lymph % (Auto) 20.0 Clay % (Auto) 4.7 Eos % (Auto) 1.1 Baso % (Auto) 0.2 Neut # (Auto) 9.48 H Lymph # (Auto) 2.6 Clay # (Auto) 0.6 Eos # (Auto) 0.1 Baso # (Auto) 0.0 Nucleated RBC % (a uto) 0 Nucleated RBCs # 0.0 Vitals: Last Vital Signs Temp 98.0 F 01/10/20 12:00 Pulse 70 01/10/20 12:00 Resp 16 01/10/20 12:00 BP 156/96 01/10/20 12:00 Pulse Ox 100 01/10/20 12:00 Discharge Plan Discharge Patient Disposition: Home Condition: Stable Prescriptions: New hydrocodone-acetaminophen 5-325 mg tablet 1 tab PO Q4H Qty: 30 RF: 0 Changed sulfamethoxazole-trimethoprim 800-160 mg tablet 1 tab PO BID 14 Days Qty: 28 RF: 0 Discontinued naproxen 375 mg Tablet 375 mg PO BID PRN (Reason: Pain) RF: 0 Discharge Orders: Discharge Order (Routine); Ordered 01/10/20 Ordered By: Surekha Mendoza Referrals: Chiquita Ordonez DO [Physician] - 01/21/20 9:45 am (You have an appointment on January 20 at 9:45am) Diogenes Garcia MD [Physician] - 01/21/20 2:00 pm (You have an appointment on January 20 at 2:00pm) Discharge Diet: Regular Discharge Activity: Limit activity as instructed Patient Instructions: Bursitis - Elbow, Hydrocodone/Acetaminophen (By mouth), Cellulitis (DC), Gastroesophageal Reflux Disease (DC), Leukocytosis (DC), Joint Incision and Drainage (DC) Activity Restrictions/Additional Instructions: Keep elbow in sling. May remove for gentle range of motion. Replace dressing as needed for drainage. Discharge Date/Time: 01/10/20 17:21 Discharge Attestations Time Spent in Discharge Care*: less than 30 min Specific Discharge Activities: Specific discharge activities: educating patient, discussing with pcp/other providers, discussing with director case management/social workers/dc planners, documenting/other paperwork and evaluating patient/reviewing data Status at Discharge: Cognitive status at discharge: cognitively intact , Behavioral status at discharge: cooperative and independent in ADL's , Functional status at discharge: independent ambulation Overall status at discharge: patient is progressing back to baseline Quality Metrics Clinical Quality Measures During this hospital stay, did patient experience: None Coding Level of Care Code Acute Computer Science Intern for g Fwd Exam Comprehensive Diagnoses Septic olecranon bursitis of right elbow M71.121
== END 2020-01-10 17:21 | disposition home or self-care (01) | DRG 558 ==
LOC: ER 20:40 → MEDSURG 21:18
PROVIDERS: Orthopaedic Surgery; Admitting Provider Internal Medicine; Visit Provider Family Medicine
PROC: 0X943ZZ Drainage of Right Axilla, Percutaneous Approach (ICD-10-PCS; principal; 2020-01-08 13:25)
DX: M71.121 Other infective bursitis, right elbow (principal); L03.113 Cellulitis of right upper limb; K21.9 Gastro-esophageal reflux disease without esophagitis; F17.210 Nicotine dependence, cigarettes, uncomplicated; Z20.828 Contact with and (suspected) exposure to other viral communicable diseases
CPT/HCPCS: 12345; 36415; 36416; 71045; 73070; 80048; 80053; 80076; 80202; 82962; 85025; 87040; 87070; 87075; 87077; 87186; 87205; 87426; 97165; 99283; J1100; J1885; J2250; J2270; J2405; J2543; J2704; J3010; J3370; J7030; J7050